=== PATIENT | female | born 1990 | race American Indian/Alaskan Native ===

== ENCOUNTER 2019-03-13 07:01 | Inpatient (IN) | payer BC ==
[2019-03-13] MEDS ORDERED: PITOCin/NS 20 UNIT/1000ML DRIP 40,000 MILLIUNITS/2,000 ML BAG IV ONE (07:40)
[2019-03-13] MEDS ORDERED: CYTOTEC ONE (07:42)
[2019-03-13] MEDS ORDERED: SUBLIMAZE IV ONE (08:00)
[2019-03-13] MEDS ORDERED: XYLOCAINE 2% INFILTRATI NR (08:30)
[2019-03-13] MEDS ORDERED: MINERAL OIL PO PRN (08:30)
[2019-03-13] MEDS ORDERED: PITOCin/NS 20 UNIT/1000ML DRIP 20 UNITS/1,000 ML BAG IV SCH (08:30)
[2019-03-13] MEDS ORDERED: LACTATED RINGERS 1,000 ML IV SCH (08:30)
[2019-03-13 08:34] LABS: Hematocrit 35.3 % (30.3-42.9); Hemoglobin 11.7 gm/dl (10.1-14.3); Mean Corpuscular HGB Conc 33 % (30-34); Mean Corpuscular Volume 82 fl (79-97); Platelet Count 188 K/mm3 (140-440); Red Blood Count 4.33 M/mm3 (3.65-5.03); Red Cell Distribution Width 16.1 % (13.2-15.2)
[2019-03-13] MEDS ORDERED: CYTOTEC PR ONE (09:10)
[2019-03-13] MEDS ORDERED: BENADRYL PO PRN (10:15)
[2019-03-13] MEDS ORDERED: MILK OF MAGNESIA PO PRN (10:15)
[2019-03-13] MEDS ORDERED: LANSINOH TP PRN (10:15)
[2019-03-13] MEDS ORDERED: NORCO 5/325 PO PRN (10:15)
[2019-03-13] MEDS ORDERED: TUCKS PAD TP PRN (10:15)
[2019-03-13] MEDS ORDERED: DULCOLAX PR PRN (10:15)
[2019-03-13] MEDS ORDERED: ZOFRAN IV PRN (10:15)
[2019-03-13] MEDS ORDERED: TYLENOL PO PRN (10:15)
[2019-03-13] MEDS ORDERED: SODIUM CHLORIDE FLUSH SYRINGE 10 ML IV SCH (11:00)
[2019-03-13] MEDS: IBUPROFEN PO SCH ×2 (11:31→17:11)
[2019-03-13] MEDS: PRENATAL VITAMIN PO SCH (11:31)
[2019-03-13] MEDS: FEOSOL PO SCH ×2 (11:31→22:15)
--- NOTE | 2019-03-13 11:36 | Procedure Note ---
OB Delivery Note - Delivery Date of Delivery: 03/13/19 Estimated blood loss: other (600cc) - Vaginal Delivery presentation: vertex Delivery position: OA Delivery induction: none Delivery monitor: external FHT, external uterine Route of delivery: Delivery placenta: spontaneous Delivery cord: 3 umbilical vessels Episiotomy: none Delivery laceration: none Anesthesia: none Delivery comments: Patient was noted to be c/c/ and +1 station after nurse summoned me to a room that i am not familiar with patient but CNMW not avaialble. Patient pushed 2 times and delivered a viable female at 0724 with easily delivered shoulders and head. The nasopharynx and oropharynx suctioned. Spontaneous cry. the cord was clamped and cut. The placenta delivered intact with three vessel cord 0738 . Patient had some PP hemorrhage total EBL was 600 cc. pitocin given IM and cytotec 1000 mg for great hemostasis. Patient tolerated procedure well. Bonding with baby - Infant A at 1 minute: 8 at 5 minutes: 9 Infant Gender: Female (6 pounds 4 oz)
--- NOTE | 2019-03-13 11:44 | History and Physical Report ---
History of Present Illness Date of examination: 03/13/19 Date of admission: 03/13/19 07:26 Chief complaint: Intense labor pains and leaking of fluid History of present illness: 28 yo AA Fe HARPAL 03/16/2019 (LMP), 39weeks 4 days presents to L&D in active labor and leaking fluid. Pt found to be complete with urge to push. Pt received early and consistent care with [facility]. Her has been complicated with Anemia (Ferrous sulfate 325mg PO BID), Hgb E trait (FOB declined testing), Vitamin D deficiency (D3 supplementation), and Hx Migraines (followed by Neuro). labs: O positive, Rubella Immune, VDRL non-reactive, HBsAg Negative, HIV Negative, GC/CL Negative, Trich Negative, MSAFP Negative, GBS Positive Past History Past Medical History: other (Migranes, Hgb E trait) Past Surgical History: no surgical history [employer] History: denies: abnormal PAP smear, chlamydia, gonorrhea, hepatitis B, hepatitis C, herpes, HIV, syphilis, trichomonas Family/Genetic History: none Social history: no significant social history, single, lives with family, full code. denies: smoking, alcohol abuse, prescription drug abuse, IV drug use - Obstetrical History Expected Date of Delivery: 03/16/19 Actual Gestation: 39 Week(s) 4 Day(s) : 2 Para: 1 Hx # Term Pregnancies: 1 Number of Pregnancies: 0 Spontaneous Abortions: 0 Induced : 0 Number of Living Children: 1 #1 Gender: Female year: 2[birth year] Birthweight: 2.608 kg Method of Delivery: Vaginal Complications: none Medications and Allergies Allergies Allergy/AdvReac Type Severity Reaction Status Date / Time No Known Allergies Allergy Verified 03/13/19 07:33 Active Meds: Active Medications Acetaminophen (Tylenol) 650 mg PO Q4H PRN PRN Reason: Pain MILD(1-3)/Fever >100.5/GALLEGOS Acetaminophen/Hydrocodone Bitart ([place] 5/325) 2 each PO Q6H PRN PRN Reason: Pain, Moderate (4-6) Bisacodyl (Dulcolax) 10 mg ME BID PRN PRN Reason: Constipation Diphenhydramine HCl (Benadryl) 25 mg PO Q6H PRN PRN Reason: Itching Ferrous Sulfate (Feosol) 325 mg PO BID [facility] Last Admin: 03/13/19 11:31 Dose: 325 mg Documented by: Ibuprofen (Ibuprofen) 600 mg PO Q6HR [facility] Last Admin: 03/13/19 11:31 Dose: 600 mg Documented by: Magnesium Hydroxide (Milk Of Magnesia) 30 ml PO HS PRN PRN Reason: Constipation Multi-Ingredient Ointment (Lansinoh) 1 applic TP PRN PRN PRN Reason: Sore Nipples Multivitamins/Iron/Calcium ( Vitamin) 1 each PO QDAY [facility] Last Admin: 03/13/19 11:31 Dose: 1 each Documented by: Ondansetron HCl (Zofran) 4 mg IV Q8H PRN PRN Reason: Nausea And Vomiting Sodium Chloride (Sodium Chloride Flush Syringe 10 Ml) 10 ml IV PRN [facility] Witch Abigail/Glycerin (Tucks Pad) 1 each TP PRN PRN PRN Reason: Hemorrhoid/cleansing/soothing Review of Systems Cardiovascular: no chest pain, no shortness of breath Respiratory: no shortness of breath Breasts: normal Gastrointestinal: no nausea, no vomiting, no diarrhea, no constipation Genitourinary: normal appearance, leakage of fluid, contractions, no vaginal discharge, no genital sores - Vital Signs Vital signs: Vital Signs Temp Resp 98.0 F 18 03/13/19 07:20 03/13/19 07:20 Temp Pulse Resp BP Pulse Ox 98.4 F 63 20 114/64 03/13/19 09:10 03/13/19 09:00 03/13/19 09:10 03/13/19 09:31 - Physical Exam Abdomen: Positive: other (Gravid) Genitourinary (Female): Positive: normal external genitalia, normal perenium Uterus: Positive: enlarged (Gravid) Anus/Rectum: Positive: normal perianal skin Extremities: Positive: normal Deep Tendon Reflex Grade: Normal +2 - Obstetrical Cervical Dilatation: 10 (Per admitting RN) Cervical Effacement Percentage: 100 station: +1 Results Result Diagrams: 03/13/19 07:38 Abnormal lab results 03/13/19 Range/Units 07:38 WBC 12.0 H (4.5-11.0) K/mm3 MCH 27 L (28-32) pg RDW 16.1 H (13.2-15.2) % All other labs normal. Assessment and Plan A: Term IUP Active labor GBS Positive P: Admit to L&D, routine labor orders Anticipate
[2019-03-14] MEDS: IBUPROFEN PO SCH ×5 (05:03→23:27)
[2019-03-14 06:31] LABS: Hematocrit 28.8 % (30.3-42.9); Hemoglobin 9.5 gm/dl (10.1-14.3)
[2019-03-14] MEDS: FEOSOL PO SCH ×2 (09:40→21:23)
[2019-03-14] MEDS: PRENATAL VITAMIN PO SCH (09:40)
--- NOTE | 2019-03-14 10:34 | Progress Note ---
Assessment and Plan - Patient Problems (1) Status post normal vaginal delivery Current Visit: Yes Status: Acute Plan to address problem: PPD 1 - stable Continue routine orders Anticipate discharge in 24 hours (2) Anemia due to blood loss, acute Current Visit: Yes Status: Acute Plan to address problem: Asymptomatic Continue iron therapy Subjective - Subjective Date of service: 03/14/19 Principal diagnosis: PPD #1; s/p Interval history: see H&P and OB Delivery Procedure Note Patient reports: appetite normal, voiding normally, pain well controlled, ambulating normally, no dizzy ambulation [place]: doing well Objective - Vital Signs Latest vital signs: Vital Signs Temp Pulse Resp BP Pulse Ox 03/14/19 08:50 97.8 F 73 18 94/61 99 03/13/19 23:06 97.8 F 66 20 103/60 99 03/13/19 17:01 98.2 F 75 16 99/65 99 Intake and Output 03/13/19 03/14/19 03/14/19 23:59 07:59 15:59 Intake Total 360 Output Total 550 200 Balance -550 160 Intake: Intake, Free Water 360 Output: Urine 550 200 Void 550 200 Other: Total, Output Amount 300 200 # Voids Void 2 - Exam Cardiovascular: Present: Regular rate Abdomen: Present: normal appearance, soft Vulva: both: normal Uterus: Present: normal, firm, fundal height below umbilicus Extremities: Present: normal Incision: Present: normal Comments: small lochia - Labs Labs: Abnormal lab results 03/14/19 Range/Units 05:45 Hgb 9.5 L (10.1-14.3) gm/dl Hct 28.8 L D (30.3-42.9) %
[2019-03-15] MEDS: IBUPROFEN PO SCH ×2 (05:26→10:57)
[2019-03-15] MEDS: PRENATAL VITAMIN PO SCH (10:56)
[2019-03-15] MEDS: FEOSOL PO SCH (10:56)
--- NOTE | 2019-03-15 11:08 | Progress Note ---
Assessment and Plan A: day 2 S/P spontaneous vaginal delivery. Anemia secondary to and blood loss. P: Discharge patient home today. discharge instructions and warning signs discussed with patient. Advised patient to continue taking vitamin and iron supplement at home (patient states she has plenty of vitamins and iron at home). Rx Motrin 800 mg, #20, 1 po every 8 hours prn pain, 0 RF called to [facility] pharmacy on [address] Advised patient to avoid driving, intercourse, lifting, and heavy housework. Advised patient to follow up at [facility] in 6 weeks for exam. Patient is considering an IUD for contraception at 8 weeks . Patient voiced understanding of all instructions. Subjective - Subjective Date of service: 03/15/19 Principal diagnosis: PPD #2; s/p Interval history: day 2 S/P spontaneous vaginal delivery. Doing well. and bottlefeeding. Patient reports a small amount of lochia. Patient denies headache, chest pain, cough, dizziness, shortness of breath, abdominal pain, leg pain, heavy vaginal bleeding, or symptoms of depression. Patient desires discharge today. Patient reports: appetite normal, voiding normally, pain well controlled, flatus, ambulating normally, no dizzy ambulation, no nauseated : doing well Objective - Vital Signs Latest vital signs: Vital Signs Temp Pulse Resp BP Pulse Ox 03/15/19 07:34 97.5 F L 63 18 101/54 100 03/15/19 01:29 97.6 F 69 20 92/61 99 03/14/19 23:27 18 03/14/19 21:23 18 03/14/19 17:14 20 - Exam Cardiovascular: Present: Regular rate, Normal S1, Normal S2 Lungs: Present: Clear to auscultation Abdomen: Present: normal appearance, soft. Absent: distention, tenderness, guarding, rigidity Uterus: Present: normal, firm, fundal height below umbilicus. Absent: bogginess, tenderness Extremities: Present: normal. Absent: tenderness, edema
--- NOTE | 2019-03-15 11:12 | Discharge Summary ---
Providers - Providers Date of Admission: 03/13/19 07:26 Date of discharge: 03/15/19 Attending physician: LING COOMBS MD None Primary care physician: LING COOMBS MD Hospitalization Reason for admission: active labor Delivery: Episiotomy: none Other procedures: none complications: none Discharge diagnosis: IUP at term delivered baby: female Pertinent studies: Labs Hospital course: Normal hospital course. Condition at discharge: Good Disposition: DC-01 TO HOME OR SELFCARE - Discharge Diagnoses (1) Term delivered Status: Acute (2) Anemia due to blood loss Status: Acute Plan - Provider Discharge Summary Activity: routine, no sex for 6 weeks, no heavy lifting 4 weeks, no strenuous exercise Diet: routine Instructions: routine Additional instructions: Continue taking your vitamins and iron supplements at home. Rx Motrin 800 mg, #20, 1 po every 8 hours prn, 0 RF called to [facility] pharmacy on [address] Call your doctor immediately for: * Fever > 100.5 * Heavy vaginal bleeding ( >1 pad per hour) * Severe persistent headache * Shortness of breath * Reddened, hot, painful area to leg or breast - Follow up plan Follow up: LING COOMBS MD [Primary Care Provider] - 6 Weeks
[2019-03-15 13:40] VITALS: BP 117/57
== END 2019-03-15 13:56 | disposition home or self-care (01) | DRG 787 ==
LOC: TRG 07:01 → LD 07:26 → OB 09:37
PROVIDERS: ADMIT Obstetrics & Gynecology; ATTEND Obstetrics & Gynecology
PROC: 10D00Z1 Extraction of Products of Conception, Low, Open Approach (ICD-10-PCS; principal; 2019-03-13)
DX: O99.824 Streptococcus B carrier state complicating childbirth (principal); D62 Acute posthemorrhagic anemia; O99.354 Diseases of the nervous system complicating childbirth; O99.02 Anemia complicating childbirth; G43.909 Migraine, unspecified, not intractable, without status migrainosus; Z3A.39 39 weeks gestation of pregnancy; Z37.0 Single live birth
CPT/HCPCS: 36415; 85014; 85018; 85027; 86592; 86850; 86900; 86901; G0378; J2590; J3010